=== PATIENT | male | born 1975 | race Caucasian/White ===

== ENCOUNTER 2019-03-20 13:50 | Emergency (ER) | payer BC ==
[~2019-03-20] VITALS: Ht 182.9 cm; Wt 109.1 kg
[2019-03-20 13:54] VITALS: TEMP 96.1
[2019-03-20] MEDS ORDERED: ZOCOR 20MG20 MG PO (13:57)
[2019-03-20] MEDS ORDERED: COZAAR 25MG25 MG/TAB PO (13:57)
[2019-03-20] MEDS ORDERED: THE MEDICINE S200 M2 PO (13:57)
[2019-03-20] MEDS ORDERED: IBU600 MG PO (14:11)
[2019-03-20 14:16] LABS: BASO # 0.1 (0.0-0.2); BASO % 0.9 % (0.0-2.0); EOS # 0.2 (0.0-0.7); EOS % 3.1 % (0-4.0); GRAN # 3.8 (1.4-6.5); GRAN % 49.2 % (42.2-75.2); HEMATOCRIT 45.4 % (42.0-52.0); HEMOGLOBIN 16.1 g/dl (13.5-18.0); LYMPH # 2.8 (1.2-3.4); LYMPH % 36.5 % (20.0-51.0); MEAN CELL VOLUME 89 fl (80.0-100.0); MEAN CORPUSCULAR HEMOGLOBIN 31 pg (27.0-31.0); MEAN CORPUSCULAR HGB CONC 36 g/dl (33.0-37.0); MEAN PLATELET VOLUME 10.8 fl (7.4-10.4); MONO # 0.8 (0.1-0.6); MONO % 10.2 % (1.7-9.3); PLATELET COUNT 251 K/mm3 (130-400); RED BLOOD COUNT 5.12 M/mm3 (4.20-5.60); REDCELL DISTRIBUTION WIDTH-CV 11.9 % (11.5-14.5)
[2019-03-20 14:27] LABS: ALANINE AMINOTRANSFERASE 101 U/L (21-72); ALBUMIN 4.5 gm/dL (3.5-5.0); ALKALINE PHOSPHATASE 65 U/L (50-136); ANION GAP 12 mmol/L (7-16); AST,SGOT 59 U/L (15-37); BILIRUBIN,TOTAL 0.9 mg/dL (0.0-1.0); BLOOD UREA NITROGEN 13 mg/dL (9-20); CALCIUM 9.6 mg/dL (8.4-10.2); CARBON DIOXIDE 25 mmol/L (22-30); CHLORIDE 107 mmol/L (98-107); CREATININE, serum 0.91 (0.66-1.25); GLUCOSE 116 mg/dL (74-106); POTASSIUM 3.9 mmol/L (3.4-5.0); SODIUM 144 mmol/L (137-145); TOTAL PROTEIN 7.2 gm/dL (6.4-8.2)
[2019-03-20 14:39] LABS: TROPONIN-I < 0.012 ng/mL (0.000-0.035)
[2019-03-20 15:10] LABS: PROTHROMBIN TIME 11.4 SECONDS (9.7-12.8)
[2019-03-20 15:33] LABS: PARTIAL THROMBOPLASTIN TIME 33.6 SECONDS (26.0-37.0)
[2019-03-20 16:53] VITALS: BP 118/89; PULSE 85
== END 2019-03-20 16:53 | disposition home or self-care (01) ==
LOC: COL.ER 13:50
PROVIDERS: Family Medicine
DX: I48.91 Unspecified atrial fibrillation (principal); I10 Essential (primary) hypertension; E78.5 Hyperlipidemia, unspecified
CPT/HCPCS: J2704; J7120

== ENCOUNTER → 2024-04-15 | Outpatient (CLI) | payer BC ==
[~2024-04-15] MED LIST: COZAAR 25MG25 MG/TAB PO; IBU600 MG PO; THE MEDICINE S200 M2 PO; ZOCOR 20MG20 MG PO
== END ==
LOC: COL.VAS 10:37
DX: I34.0 Nonrheumatic mitral (valve) insufficiency (principal)